=== PATIENT | female | born 1990 | race Caucasian/White ===

== ENCOUNTER 2024-03-02 16:53 | Outpatient (CLI) | payer OTHER | END 2024-03-02 17:45 | disposition home or self-care (01) | LOC: NST 16:53 | PROVIDERS: ATTEND Obstetrics & Gynecology Maternal & Fetal Medicine | DX: Z34.82 Encounter for supervision of other normal pregnancy, second trimester (principal) ==

== ENCOUNTER 2024-03-23 09:05 | Inpatient (IN) | payer OTHER ==
[~2024-03-23] VITALS: Ht 149.9 cm; Wt 56.2 kg
[2024-03-23] MEDS ORDERED: RINGERS SOLUTION,LACTATED 1,000 ML IV SCH (10:30)
[2024-03-23] MEDS ORDERED: MAGNESIUM SULFATE IN WATER 500 ML IV SCH (10:30)
[2024-03-23] MEDS ORDERED: PRENATAL CAPLE1 EAC1 PO (10:31)
[2024-03-23] MEDS ORDERED: IRON236 MG (10:32)
[2024-03-23 11:11] LABS: URINE APPEARANCE Clear; URINE BILIRRUBIN Negative (NEGATIVE); URINE BLOOD Negative; URINE COLOR Yellow; URINE GLUCOSE Negative (NEGATIVE); URINE KETONE Negative (NEGATIVE); URINE LEUKOCYTE Negative; URINE NITRATE Negative; URINE PROTEIN Negative (NEGATIVE); URINE UROBILINOGEN 0.2 E.U./dl
[2024-03-23 11:15] LABS: URINE EPITHELIAL CELLS 3.3 uL (0.0-38.8)
[2024-03-23 11:21] LABS: HEMATOCRIT 29.7 % (36.0-45.00); HEMOGLOBIN 10.3 g/dL (12.0-15.00); MEAN CELL VOLUME 89.2 fL (80.00-100.00); MEAN CORPUSCULAR HGB CONC 34.7 g/dl (32.0-36.0); PLATELET COUNT 266 K/uL (150-450); RED BLOOD COUNT 3.33 M/uL (4.00-6.00); RED CELL DISTRIBUTION WIDTH 13.3 % (11.5-14.5)
[2024-03-23 11:28] LABS: URINE RBC 1.2 uL (0.0-20.8); URINE WBC 0.6 uL (0.0-23.2)
[2024-03-23 11:52] LABS: INR < 0.93; PARTIAL THROMBOPLASTIN TIME 27.3 SECONDS (22.0-34.0)
[2024-03-23 11:54] LABS: PROTHROMBIN TIME 9.5 SECONDS (9.0-11.5)
[2024-03-23 12:00] LABS: ALBUMIN 2.5 gm/dL (3.4-5.0); BILIRUBIN TOTAL 0.34 mg/dL (0.3-1.2); CALCIUM 8.5 mg/dL (8.5-10.1); CREATININE SERUM 0.4 mg/dL (0.55-1.02); GFR 181.64; GLOBULINA 3.4 G/DL (2.4-3.5); POTASSIUM 3.99 mEq/L (3.5-5.1); TOTAL PROTEIN 5.9 gm/dL (6.4-8.2)
[2024-03-24] MEDS ORDERED: ACETAMINOPHEN 500 MG GEL..CAP PO PRN (08:30)
[2024-03-25] MEDS ORDERED: DOCUSATE SODIUM 100MG CAP PO SCH (09:00)
[2024-03-25] MEDS ORDERED: NIFEDIPINE 30 MG TAB.SA.OSM PO SCH (09:00)
== END 2024-03-29 09:50 | disposition home or self-care (01) | DRG 833 ==
LOC: NST 09:05 → LDR 10:01 → OB/GYN 03-25 11:16
PROVIDERS: Obstetrics & Gynecology; ADMIT Obstetrics & Gynecology Maternal & Fetal Medicine; ATTEND Obstetrics & Gynecology Maternal & Fetal Medicine
PROC: 4A1HXCZ Monitoring of Products of Conception, Cardiac Rate, External Approach (ICD-10-PCS; principal; 2024-03-23)
PROC: BY4DZZZ Ultrasonography of Second Trimester, Multiple Gestation (ICD-10-PCS; 2024-03-23)
PROC: BU4CZZZ Ultrasonography of Uterus and Ovaries (ICD-10-PCS; 2024-03-23)
PROC: BY4DZZZ Ultrasonography of Second Trimester, Multiple Gestation (ICD-10-PCS; 2024-03-28)
PROC: BU4CZZZ Ultrasonography of Uterus and Ovaries (ICD-10-PCS; 2024-03-28)
DX: O47.02 False labor before 37 completed weeks of gestation, second trimester (principal); O30.042 Twin pregnancy, dichorionic/diamniotic, second trimester; O26.842 Uterine size-date discrepancy, second trimester; O36.8122 Decreased fetal movements, second trimester, fetus 2; Z3A.26 26 weeks gestation of pregnancy; Z20.822 Contact with and (suspected) exposure to COVID-19

== ENCOUNTER 2024-04-04 09:18 | Outpatient (CLI) | payer OTHER ==
[~2024-04-04 09:18] MED LIST: IRON236 MG; PRENATAL CAPLE1 EAC1 PO
== END 2024-04-04 09:57 | disposition home or self-care (01) ==
LOC: NST 09:18
PROVIDERS: ATTEND Obstetrics & Gynecology Gynecology
DX: Z34.83 Encounter for supervision of other normal pregnancy, third trimester (principal)

== ENCOUNTER 2024-04-19 09:20 | Outpatient (CLI) | payer OTHER | END 2024-04-19 11:09 | disposition home or self-care (01) | LOC: NST 09:20 | PROVIDERS: ATTEND Obstetrics & Gynecology Gynecology | DX: Z34.83 Encounter for supervision of other normal pregnancy, third trimester (principal) ==

== ENCOUNTER 2024-04-27 10:08 | Outpatient (CLI) | payer OTHER | END 2024-04-27 10:36 | disposition home or self-care (01) | LOC: NST 10:08 | PROVIDERS: ATTEND Obstetrics & Gynecology Maternal & Fetal Medicine | DX: Z34.83 Encounter for supervision of other normal pregnancy, third trimester (principal) ==

== ENCOUNTER 2024-05-01 20:29 | Inpatient (IN) | payer OTHER ==
[~2024-05-01] VITALS: Ht 149.9 cm; Wt 59.4 kg
[2024-05-01 19:28] VITALS: BP 117/73
[2024-05-01] MEDS ORDERED: BETAMETHASONE ACETATE,SOD PHOS 30 MG/5 ML ML ONE (20:44)
[2024-05-01] MEDS ORDERED: MAGNESIUM SULFATE IN WATER 4 GM/100 ML PIGGYBACK IV ONE (20:45)
[2024-05-01] MEDS ORDERED: PROCARDIA 30 MG PO (21:02)
[2024-05-01] MEDS ORDERED: COLACE100 MG PO (21:03)
[2024-05-01 21:07] LABS: HEMATOCRIT 33.1 % (36.0-45.00); HEMOGLOBIN 11.1 g/dL (12.0-15.00); MEAN CELL VOLUME 90.4 fL (80.00-100.00); MEAN CORPUSCULAR HEMOGLOBIN 30.3 pg (27.00-32.0); MEAN CORPUSCULAR HGB CONC 33.5 g/dl (32.0-36.0); PLATELET COUNT 226 K/uL (150-450); RED BLOOD COUNT 3.66 M/uL (4.00-6.00); RED CELL DISTRIBUTION WIDTH 15.2 % (11.5-14.5)
[2024-05-01] MEDS ORDERED: BETAMETHASONE ACETATE,SOD PHOS 30 MG/5 ML ML IM ONE (21:15)
[2024-05-01 21:36] LABS: INR < 0.93; PARTIAL THROMBOPLASTIN TIME 25.6 SECONDS (22.0-34.0); PROTHROMBIN TIME 9.8 SECONDS (9.0-11.5)
[2024-05-01] MEDS ORDERED: MAGNESIUM SULFATE IN WATER 100 ML IV ONE (21:45)
[2024-05-01] MEDS ORDERED: RINGERS SOLUTION,LACTATED 1,000 ML IV SCH (21:45)
[2024-05-01] MEDS ORDERED: MAGNESIUM SULFATE IN WATER 500 ML IV SCH (21:45)
[2024-05-01 21:46] LABS: ALBUMIN 2.5 gm/dL (3.4-5.0); BILIRUBIN TOTAL 0.22 mg/dL (0.3-1.2); CALCIUM 8.8 mg/dL (8.5-10.1); CREATININE SERUM 0.4 mg/dL (0.55-1.02); GFR 181.64; GLOBULINA 3.3 G/DL (2.4-3.5); POTASSIUM 4.67 mEq/L (3.5-5.1); TOTAL PROTEIN 5.8 gm/dL (6.4-8.2)
[2024-05-01 23:37] VITALS: BP 95/59
[2024-05-02 03:05] VITALS: BP 98/63
[2024-05-02 06:18] VITALS: BP 105/65; O2SAT 99
[2024-05-02] MEDS ORDERED: DOCUSATE SODIUM 100MG CAP PO SCH (09:42)
[2024-05-02] MEDS ORDERED: PNV,CALCIUM 72/IRON/FOLIC ACID 1 TAB TABLET PO NR (11:00)
[2024-05-02 11:55] VITALS: BP 96/63
[2024-05-02 15:41] VITALS: BP 103/62
[2024-05-02] MEDS ORDERED: IRON FUM,PS/FOLIC/BCOMP,C NO.9 1 CAP CAPSULE PO SCH (17:00)
[2024-05-02 19:34] VITALS: BP 98/60
[2024-05-02] MEDS ORDERED: BETAMETHASONE ACETATE,SOD PHOS 30 MG/5 ML ML IM NR (21:00)
[2024-05-02 23:20] VITALS: BP 102/65
[2024-05-03 02:57] VITALS: BP 104/65
[2024-05-03 06:30] VITALS: BP 103/65; O2SAT 96
[2024-05-03] MEDS ORDERED: PNV,CALCIUM 72/IRON/FOLIC ACID 1 TAB TABLET PO SCH (09:00)
[2024-05-03 12:21] VITALS: BP 101/61; O2SAT 99
[2024-05-03 15:09] VITALS: BP 94/56
[2024-05-03] MEDS ORDERED: IRON FUM,PS/FOLIC/BCOMP,C NO.9 1 CAP CAPSULE PO SCH (17:00)
[2024-05-03 19:00] VITALS: BP 99/63
[2024-05-03 23:34] VITALS: BP 101/59
[2024-05-04 03:22] VITALS: BP 114/73
[2024-05-04 06:53] VITALS: BP 102/59; O2SAT 98
[2024-05-04 11:36] VITALS: BP 96/60; O2SAT 99
[2024-05-04 14:32] VITALS: BP 104/65
[2024-05-04] MEDS ORDERED: NIFEDIPINE 30 MG TAB.SA.OSM PO SCH (17:00)
[2024-05-04 17:41] VITALS: BP 103/63
[2024-05-05 01:57] VITALS: BP 108/63
[2024-05-05 08:00] VITALS: BP 102/66
[2024-05-05] MEDS ORDERED: TERBUTALINE SULFATE 1 MG/ML AMPUL ONE (08:04)
[2024-05-05] MEDS ORDERED: TERBUTALINE SULFATE 1 MG/ML AMPUL SUBCUTANEO STA (08:45)
[2024-05-05] MEDS ORDERED: NIFEDIPINE 60 MG TAB.SA.OSM PO SCH (09:00)
== END 2024-05-05 13:44 | disposition home or self-care (01) | DRG 833 ==
LOC: LDR 20:29 → OB/GYN 05-04 10:39
PROVIDERS: ADMIT Obstetrics & Gynecology Maternal & Fetal Medicine; ATTEND Obstetrics & Gynecology Maternal & Fetal Medicine
PROC: 4A1HXCZ Monitoring of Products of Conception, Cardiac Rate, External Approach (ICD-10-PCS; principal; 2024-05-01)
PROC: BY4DZZZ Ultrasonography of Second Trimester, Multiple Gestation (ICD-10-PCS; 2024-05-02)
PROC: BU4CZZZ Ultrasonography of Uterus and Ovaries (ICD-10-PCS; 2024-05-02)
PROC: BW40ZZZ Ultrasonography of Abdomen (ICD-10-PCS; 2024-05-05)
DX: O47.03 False labor before 37 completed weeks of gestation, third trimester (principal); O36.8132 Decreased fetal movements, third trimester, fetus 2; O30.093 Twin pregnancy, unable to determine number of placenta and number of amniotic sacs, third trimester; Z3A.35 35 weeks gestation of pregnancy; Z20.822 Contact with and (suspected) exposure to COVID-19

== ENCOUNTER 2024-05-12 11:11 | Outpatient (CLI) | payer OTHER ==
[~2024-05-12 11:11] MED LIST changes: +COLACE100 MG PO; +PROCARDIA 30 MG PO
== END 2024-05-12 12:12 | disposition home or self-care (01) ==
LOC: NST 11:11
PROVIDERS: ATTEND Obstetrics & Gynecology
DX: Z34.83 Encounter for supervision of other normal pregnancy, third trimester (principal)

== ENCOUNTER 2024-05-26 10:39 | Inpatient (IN) | payer OTHER ==
[~2024-05-26] VITALS: Ht 149.9 cm; Wt 2.3 kg
[2024-05-26 10:36] VITALS: BP 111/73
[2024-05-26] MEDS ORDERED: RINGERS SOLUTION,LACTATED 1,000 ML IV SCH ×2 (11:00→15:15)
[2024-05-26] MEDS ORDERED: CEFAZOLIN SODIUM 1,000 MG VIAL IV SCH (11:15)
[2024-05-26 11:40] VITALS: BP 114/75
[2024-05-26 12:01] LABS: HEMATOCRIT 32.3 % (36.0-45.00); HEMOGLOBIN 10.9 g/dL (12.0-15.00); MEAN CELL VOLUME 90.5 fL (80.00-100.00); MEAN CORPUSCULAR HEMOGLOBIN 30.7 pg (27.00-32.0); MEAN CORPUSCULAR HGB CONC 33.9 g/dl (32.0-36.0); PLATELET COUNT 189 K/uL (150-450); RED BLOOD COUNT 3.57 M/uL (4.00-6.00); RED CELL DISTRIBUTION WIDTH 15.6 % (11.5-14.5)
[2024-05-26 12:03] LABS: PH,URINE 5.5 (5.0-8.0); URINE APPEARANCE Clear; URINE BILIRRUBIN Negative (NEGATIVE); URINE BLOOD Negative; URINE COLOR Yellow; URINE GLUCOSE Negative (NEGATIVE); URINE KETONE Negative (NEGATIVE); URINE LEUKOCYTE Negative; URINE NITRATE Negative; URINE PROTEIN Negative (NEGATIVE); URINE UROBILINOGEN 0.2 E.U./dl
[2024-05-26 12:04] LABS: URINE EPITHELIAL CELLS 10.1 uL (0.0-38.8); URINE WBC 4.9 uL (0.0-23.2)
[2024-05-26] MEDS ORDERED: OXYTOCIN 20 UNITS/1000ML RL PIGGYBAG IV ONE (12:15)
[2024-05-26] MEDS ORDERED: CHLORHEXIDINE GLUCONATE 120 ML BOTTLE TOP ONE (12:15)
[2024-05-26] MEDS ORDERED: ERYTHROMYCIN BASE OPHT 1GM EACH TUBE OP ONE ×2 (12:15)
[2024-05-26 12:31] LABS: URINE CAST 0.15 uL (0.0-1.40); URINE RBC 1.5 uL (0.0-20.8)
[2024-05-26 12:38] LABS: INR < 0.93; PARTIAL THROMBOPLASTIN TIME 29.6 SECONDS (22.0-34.0); PROTHROMBIN TIME 9.9 SECONDS (9.0-11.5)
[2024-05-26 12:53] LABS: ALBUMIN 2.3 gm/dL (3.4-5.0); BILIRUBIN TOTAL 0.18 mg/dL (0.3-1.2); CALCIUM 8.8 mg/dL (8.5-10.1); CREATININE SERUM 0.49 mg/dL (0.55-1.02); GFR 143.72; GLOBULINA 3.5 G/DL (2.4-3.5); POTASSIUM 4.15 mEq/L (3.5-5.1); TOTAL PROTEIN 5.8 gm/dL (6.4-8.2)
[2024-05-26] MEDS ORDERED: CITRIC ACID/SODIUM CITRATE 30 ML BLIST.PACK PO ONE (13:15)
[2024-05-26] MEDS ORDERED: KETOROLAC TROMETHAMINE 30 MG VIAL IV SCH (15:07)
[2024-05-26] MEDS ORDERED: OXYTOCIN 1,000 ML IV ONE (15:15)
[2024-05-26] MEDS ORDERED: MORPHINE SULFATE 4 MG/ML CARTRIDGE IV PRN (15:15)
[2024-05-26] MEDS ORDERED: MORPHINE SULFATE 4 MG/ML VIAL IV ONE ×2 (17:00→17:50)
[2024-05-26] MEDS ORDERED: GABAPENTIN 300 MG CAPSULE PO SCH (17:00)
[2024-05-26] MEDS ORDERED: SIMETHICONE 125 MG CAPSULE PO SCH (17:00)
[2024-05-26] MEDS ORDERED: ACETAMINOPHEN 500 MG GEL..CAP PO SCH (18:00)
[2024-05-26] MEDS ORDERED: ONDANSETRON HCL 2 MG/ML VIAL IV SCH (18:00)
[2024-05-26 19:46] VITALS: BP 130/76
[2024-05-27 00:26] VITALS: BP 127/81
[2024-05-27 04:30] VITALS: BP 121/76
[2024-05-27 06:47] LABS: HEMOGLOBIN 10.9 g/dL (12.0-15.00); MEAN CELL VOLUME 90.7 fL (80.00-100.00); MEAN CORPUSCULAR HEMOGLOBIN 30.8 pg (27.00-32.0); PLATELET COUNT 157 K/uL (150-450); RED BLOOD COUNT 3.53 M/uL (4.00-6.00); RED CELL DISTRIBUTION WIDTH 15.7 % (11.5-14.5)
[2024-05-27] MEDS ORDERED: OxyCODONE HCL 5 MG TABLET (ROXICODONE) PO PRN (08:00)
[2024-05-27] MEDS ORDERED: KETOROLAC TROMETHAMINE 10 MG TABLET PO SCH (08:00)
[2024-05-27] MEDS ORDERED: DOCUSATE SODIUM 100MG CAP PO SCH (09:00)
[2024-05-27 10:46] VITALS: BP 133/67
[2024-05-27 16:00] VITALS: BP 140/80
[2024-05-28] VITALS: BP 106/69
[2024-05-28 08:40] VITALS: BP 116/76
[2024-05-28 13:31] VITALS: BP 120/80
[2024-05-28 15:50] VITALS: BP 104/68
[2024-05-29 09:26] VITALS: BP 122/78
[2024-05-29] MEDS ORDERED: OXYCODONE HCL5 MG PO (10:39)
[2024-05-29] MEDS ORDERED: KETO10TA2 PO (10:39)
== END 2024-05-29 12:10 | disposition home or self-care (01) | DRG 788 ==
LOC: LDR 10:39 → O/R 14:03 → OB/GYN 15:19
PROVIDERS: ADMIT Obstetrics & Gynecology; ATTEND Obstetrics & Gynecology
PROC: 4A1HXCZ Monitoring of Products of Conception, Cardiac Rate, External Approach (ICD-10-PCS; 2024-05-26)
PROC: 10D00Z1 Extraction of Products of Conception, Low, Open Approach (ICD-10-PCS; principal; 2024-05-26 11:00)
DX: O60.14X2 Preterm labor third trimester with preterm delivery third trimester, fetus 2 (principal); O32.1XX1 Maternal care for breech presentation, fetus 1; O30.043 Twin pregnancy, dichorionic/diamniotic, third trimester; Z3A.35 35 weeks gestation of pregnancy; Z37.2 Twins, both liveborn; Z20.822 Contact with and (suspected) exposure to COVID-19